=== PATIENT | male | born 1935 | race Caucasian/White ===

== ENCOUNTER 2017-03-03 13:10 | Day surgery (SDC) | payer MEDICARE, BC ==
[~2017-03-03] VITALS: Ht 177.8 cm; Wt 78.1 kg
[~2017-03-03 13:10] MED LIST: BACITRACIN 50,000 UNIT ONE; BUPIVACAINE/PF 0.5% ONE; EPINEPHRINE 1 MG/ML, 1ML ONE; THROMBIN 5,000 UNIT VIAL TP ONE; VANCOMYCIN 500 MG ONE
[2017-03-03 13:53] VITALS: BP 127/81
[2017-03-03] MEDS ORDERED: LEVO88TA4 PO ×2 (13:53→14:30)
[2017-03-03] MEDS ORDERED: LEVO100T5 PO (13:53)
[2017-03-03] MEDS ORDERED: LISI-167 PO (13:53)
[2017-03-03] MEDS ORDERED: OMEP-110 PO (13:53)
[2017-03-03] MEDS ORDERED: LACTATED RINGERS 1,000 ML IV SCH (14:00)
[2017-03-03] MEDS ORDERED: MITOMYCIN 40 MG INTVESIC ONE (14:00)
[2017-03-03] MEDS ORDERED: [UNRECOGNIZED DRUG - OTHER] INTVESIC ONE (14:00)
[2017-03-03] MEDS ORDERED: LIDOCAINE 1%, 2ML SQ PRN (14:00)
[2017-03-03] MEDS ORDERED: LEVO175T5 PO (14:05)
[2017-03-03] MEDS ORDERED: WATER FOR INJECTION STERILE INTVESIC ONE (15:00)
[2017-03-03] MEDS ORDERED: MITOMYCIN INTVESIC ONE (15:00)
[2017-03-03 15:12] LABS: ALBUMIN 3.6 g/dL (3.4-5.0); ANION GAP 10 mmol/L (5-15); CALCIUM 9.3 mg/dL (8.5-10.1); CHLORIDE 107 mmol/L (98-107)
[2017-03-03] MEDS ORDERED: FENTANYL PF 100 MCG/2ML ONE ×2 (15:15→18:08)
[2017-03-03 15:16] LABS: ALANINE AMINOTRANSFERASE 24 U/L (12-78); ALKALINE PHOSPHATASE 84 U/L (45-117); BILIRUBIN,TOTAL 0.8 mg/dL (0.2-1.0); CREATININE 1.37 mg/dL (0.7-1.3); TOTAL PROTEIN 7.8 g/dL (6.4-8.2)
[2017-03-03] MEDS ORDERED: hydrALAzine 20 MG/ML, 1ML IV PRN (16:00)
[2017-03-03] MEDS ORDERED: LABETALOL 5MG/ML, 20ML IV PRN (16:00)
[2017-03-03] MEDS ORDERED: ACETAMINOPHEN 325 MG TABLET PO PRN (16:00)
[2017-03-03] MEDS ORDERED: ONDANSETRON 2MG/ML, 2ML IVPush PRN (16:00)
[2017-03-03] MEDS ORDERED: PROMETHAZINE 25 MG/ML, 1ML IV PRN (16:00)
[2017-03-03] MEDS ORDERED: morphine SULFATE 10 MG/ML, 1ML IV PRN (16:00)
[2017-03-03] MEDS ORDERED: OXYcodone 5 MG/5 ML ORAL.SOL UDC PO PRN (16:00)
[2017-03-03] MEDS ORDERED: ROCURONIUM 10 MG/ML,10ML ONE (16:54)
[2017-03-03] MEDS ORDERED: CIPROFLOXACIN/PMX 400MG/200ML 200 ML IVPB ONE (16:54)
[2017-03-03] MEDS ORDERED: PROPOFOL 10 MG/ML, 20ML ONE (17:04)
[2017-03-03] MEDS ORDERED: DEXAMETHASONE 4 MG/ML, 1ML ONE (17:04)
[2017-03-03] MEDS ORDERED: ONDANSETRON 2MG/ML, 2ML ONE (17:21)
[2017-03-03] MEDS ORDERED: OXYcodone/APAP 5/325MG TABLET PO PRN (18:00)
[2017-03-03] MEDS ORDERED: OXYcodone 5 MG/5 ML ORAL.SOL UDC ONE (18:08)
[2017-03-03] MEDS: FENTANYL PF 100 MCG/2ML IV PRN ×2 (18:11→18:18)
== END 2017-03-03 21:30 | disposition home or self-care (01) ==
LOC: OR 13:10 → 4NOR 19:16 → OR 21:30
PROVIDERS: ATTEND Urology
DX: N32.89 Other specified disorders of bladder (principal); K21.9 Gastro-esophageal reflux disease without esophagitis; I10 Essential (primary) hypertension; E03.9 Hypothyroidism, unspecified
CPT/HCPCS: 36415; 52235; 80053; 88305; J0171; J0744; J1100; J2405; J2704; J3010; J3370; J3490; J9280

== ENCOUNTER 2017-06-15 12:09 | Day surgery (SDC) | payer MEDICARE, BC ==
[~2017-06-15] VITALS: Ht 177.8 cm; Wt 74.8 kg
[~2017-06-15 12:09] MED LIST changes: -BACITRACIN 50,000 UNIT ONE; -EPINEPHRINE 1 MG/ML, 1ML ONE; +LEVO100T5 PO; +LEVO175T5 PO; +LEVO88TA4 PO; +LISI-167 PO; +OMEP-110 PO; +SENN1TAB67 PO; -THROMBIN 5,000 UNIT VIAL TP ONE; -VANCOMYCIN 500 MG ONE
[2017-06-15] MEDS ORDERED: LACTATED RINGERS 1,000 ML IV SCH (12:38)
[2017-06-15 12:44] VITALS: BP 125/75
[2017-06-15 13:17] LABS: ALANINE AMINOTRANSFERASE 153 U/L (12-78); ALBUMIN 3.8 g/dL (3.4-5.0); ANION GAP 8 mmol/L (5-15); CALCIUM 9.4 mg/dL (8.5-10.1); CHLORIDE 107 mmol/L (98-107); CREATININE 1.46 mg/dL (0.7-1.3)
[2017-06-15 13:19] LABS: ALKALINE PHOSPHATASE 95 U/L (45-117); BILIRUBIN,TOTAL 1.1 mg/dL (0.2-1.0); TOTAL PROTEIN 7.8 g/dL (6.4-8.2)
[2017-06-15] MEDS ORDERED: INDOCYANINE GREEN 25 MG VIAL IVPush ONE (13:36)
[2017-06-15] MEDS ORDERED: INDOCYANINE GREEN 25 MG VIAL IV ONE (13:49)
[2017-06-15] MEDS ORDERED: INDOCYANINE GREEN 25 MG VIAL ONE (13:54)
[2017-06-15] MEDS ORDERED: ROCURONIUM 10 MG/ML,10ML ONE (14:15)
[2017-06-15] MEDS ORDERED: ONDANSETRON 2MG/ML, 2ML ONE (14:15)
[2017-06-15] MEDS ORDERED: CEFAZOLIN 1,000 MG ONE (14:15)
[2017-06-15] MEDS ORDERED: PROPOFOL 10 MG/ML, 20ML ONE (14:15)
[2017-06-15] MEDS ORDERED: DEXAMETHASONE 4 MG/ML, 1ML ONE (14:15)
[2017-06-15] MEDS ORDERED: FENTANYL PF 250 MCG/5ML ONE (14:17)
[2017-06-15] MEDS ORDERED: BUPIVACAINE/PF-EPI 0.5% 1:200K IM ONE (14:41)
[2017-06-15] MEDS ORDERED: HYDROmorphone 1 MG/ML, 1ML IV PRN (15:00)
[2017-06-15] MEDS ORDERED: LABETALOL 5MG/ML, 20ML IV PRN (15:00)
[2017-06-15] MEDS ORDERED: hydrALAzine 20 MG/ML, 1ML IV PRN (15:00)
[2017-06-15] MEDS ORDERED: PROMETHAZINE 25 MG/ML, 1ML IV PRN (15:00)
[2017-06-15] MEDS ORDERED: PROMETHAZINE 12.5 MG SUPP PR PRN (15:00)
[2017-06-15] MEDS ORDERED: ALBUTEROL SULFATE 2.5 MG/3 ML NPPB PRN (15:00)
[2017-06-15] MEDS ORDERED: OXYcodone 5 MG/5 ML ORAL.SOL UDC PO PRN ×2 (15:00→15:30)
[2017-06-15] MEDS ORDERED: morphine SULFATE 10 MG/ML, 1ML IV PRN (15:00)
[2017-06-15] MEDS ORDERED: ACETAMINOPHEN 325 MG TABLET PO PRN (15:00)
[2017-06-15] MEDS ORDERED: FENTANYL PF 100 MCG/2ML ONE (15:07)
[2017-06-15] MEDS ORDERED: ACETAMINOPHEN 650 MG/20.3 ML UDC ONE (15:07)
[2017-06-15] MEDS ORDERED: OXYcodone 5 MG/5 ML ORAL.SOL UDC ONE (15:07)
[2017-06-15] MEDS: FENTANYL PF 100 MCG/2ML IV PRN ×3 (15:16→15:35)
[2017-06-15] MEDS ORDERED: morphine SULFATE 10 MG/ML, 1ML IVPush PRN (15:30)
== END 2017-06-15 17:10 | disposition home or self-care (01) ==
LOC: OUT 12:09
PROVIDERS: ATTEND Surgery
DX: K81.1 Chronic cholecystitis (principal); K85.10 Biliary acute pancreatitis without necrosis or infection; I10 Essential (primary) hypertension; K21.9 Gastro-esophageal reflux disease without esophagitis; Z85.828 Personal history of other malignant neoplasm of skin; Z85.51 Personal history of malignant neoplasm of bladder; Z72.89 Other problems related to lifestyle
CPT/HCPCS: 36415; 47562; 80053; 88304; 93005; J0690; J1100; J2405; J2704; J3010; J3490; J7120

== ENCOUNTER → 2020-02-04 | Outpatient (CLI) | payer MEDICARE, BC ==
[~2020-02-04] MED LIST changes: -BUPIVACAINE/PF 0.5% ONE
== END | disposition home or self-care (01) ==
LOC: RAD 08:17
PROVIDERS: ATTEND Internal Medicine Infectious Disease
DX: M27.2 Inflammatory conditions of jaws (principal); M87.88 Other osteonecrosis, other site; Z79.2 Long term (current) use of antibiotics
CPT/HCPCS: 36573; C1751

== ENCOUNTER 2020-03-05 11:40 | Outpatient (CLI) | payer MEDICARE, BC | END 2020-03-05 23:59 | disposition home or self-care (01) | LOC: RAD 11:40 | PROVIDERS: ATTEND Internal Medicine Infectious Disease | DX: Z45.2 Encounter for adjustment and management of vascular access device (principal); Z79.2 Long term (current) use of antibiotics; Z79.899 Other long term (current) drug therapy; Z72.89 Other problems related to lifestyle; Z86.718 Personal history of other venous thrombosis and embolism; Z82.49 Family history of ischemic heart disease and other diseases of the circulatory system | CPT/HCPCS: 36573; C1751 ==